=== PATIENT | male | born 1960 | race Caucasian/White ===

== ENCOUNTER → 2016-10-13 | Outpatient (CLI) | payer OTHER ==
[~2016-10-13] MED LIST: LEVO.025 PO; LISI-360 PO
[2016-10-13 13:07] LABS: BASOPHIL % 0.4 % (0.0-2.0); EOSINOPHIL # 0.1 TH/MM3 (0-0.4); EOSINOPHIL % 2.1 % (0.0-4.0); HEMO FLAGS DIFF FINAL; LYMPH % 26.6 % (9.0-44.0); LYMPHOCYTE # 1.8 TH/MM3 (1.0-4.8); MEAN CELL VOLUME 89.2 FL (80.0-100.0); MEAN CORPUSCULAR HEMOGLOBIN 29.9 PG (27.0-34.0); MEAN CORPUSCULAR HGB CONC 33.6 % (32.0-36.0); NEUT % 57.9 % (16.0-70.0); PLATELET COUNT 159 TH/MM3 (150-450); RED BLOOD COUNT 5.04 MIL/MM3 (4.50-5.90); RED CELL DISTRIBUTION WIDTH 13.2 % (11.6-17.2); WHITE BLOOD COUNT 6.9 TH/MM3 (4.0-11.0)
[2016-10-13 13:38] LABS: ALT (GPT) 33 U/L (12-78); ANION GAP 7 MEQ/L (5-15); AST (GOT) 19 U/L (15-37); BICARBONATE 27.2 MEQ/L (21.0-32.0); BLOOD UREA NITROGEN 26 MG/DL (7-18); CHLORIDE 105 MEQ/L (98-107); GLOMERULAR FILTRATION RATE 93 ML/MIN (>89); GLUCOSE,FASTING 84 MG/DL (74-99); POTASSIUM 4.1 MEQ/L (3.5-5.1); SODIUM (NA) 139 MEQ/L (136-145)
[2016-10-13 13:48] LABS: ALKALINE PHOSPHATASE 67 U/L (45-117); HDL CHOLESTEROL 33.3 MG/DL (40.0-60.0); LDL CHOLESTEROL 137 MG/DL (0-99); THYROXINE (T4) 9.2 MCG/DL (4.5-12.1); TOTAL BILIRUBIN ADULT 0.6 MG/DL (0.2-1.0)
[2016-10-15 23:52] LABS: HCV RNA PCR IU/ML LESS THAN 15 IU/mL (()); HCV RNA PCR LOGIU/ML LESS THAN 1.18 (())
== END ==
LOC: PLAB 08:21
PROVIDERS: ATTEND Family Medicine
DX: B19.20 Unspecified viral hepatitis C without hepatic coma (principal); I10 Essential (primary) hypertension; E78.2 Mixed hyperlipidemia; E03.9 Hypothyroidism, unspecified; Z79.899 Other long term (current) drug therapy
CPT/HCPCS: 80053; 80061; 84436; 84443; 84480; 85025; 87522